=== PATIENT | female | born 1965 | race Caucasian/White ===

== ENCOUNTER 2016-11-15 18:31 | Emergency (ER) | payer SELFPAY ==
[2016-11-15 19:27] VITALS: BP 103/69; PULSE 60; RESP 20; TEMP 97.8; O2SAT 99
--- NOTE | 2016-11-15 20:19 | C.PDOC ---
History Of Present Illness 51 year old female presents to the ED for evaluation of a bite to her left index finger which she sustained from the family kitten. Patient states the family just received the kitten from the detention. Patient's daughter states the kitten is too young for rabies vaccination therefore has not received it yet. Patient denies fever, change in sensation or active bleeding from the site. Time Seen by Provider: 11/15/16 19:42 Chief Complaint (Nursing): Abnormal Skin Integrity History Per: Patient, Family (daughter) History/Exam Limitations: no limitations Onset/Duration Of Symptoms: Hrs Current Symptoms Are (Timing): Still Present Location Of Injury: Left: Hand (second finger ) Quality Of Symptoms: denies: Draining Additional History Per: Patient Past Medical History Reviewed: Historical Data, Nursing Documentation, Vital Signs Vital Signs: Last Vital Signs Temp 97.8 F 11/15/16 19:23 Pulse 60 11/15/16 19:23 Resp 20 11/15/16 19:23 BP 103/69 11/15/16 19:23 Pulse Ox 99 11/15/16 22:42 - Medical History PMH: No Chronic Diseases Surgical History: No Surg Hx Family History: States: Unknown Family Hx - Social History Hx Alcohol Use: No Hx Substance Use: No Review Of Systems Constitutional: Negative for: Fever, Chills Skin: Positive for: Other (kitten bite to left second finger ) Physical Exam - Physical Exam Appears: Non-toxic, No Acute Distress Skin: Normal Color, Warm, Dry, Other (puncture wound to left second finger. no discharge or erythema ) Head: Atraumatic, Normacephalic Eye(s): bilateral: Normal Inspection, EOMI Nose: Normal Oral Mucosa: Moist Chest: Symmetrical Respiratory: No Accessory Muscle Use Extremity: Normal ROM, No Tenderness, Capillary Refill (less than 2 seconds ), No Deformity, No Swelling Pulses: Left Radial: Normal, Right Radial: Normal Neurological/Psych: Normal Speech, Normal Cognition, Normal Motor, Normal Sensation ED Course And Treatment O2 Sat by Pulse Oximetry: 99 (on RA) Pulse Ox Interpretation: Normal Progress Note: Tetanus immunization IM was administered. Bacitracin TOP applied to affected area. Case discussed with Dr Hobbs , agreed upon no rabies vaccine needed, animal can be quarantined. Pt left prior to treatment and dispostion. Disposition - Disposition Disposition: HOME/ ROUTINE Disposition Time: 20:23 Condition: STABLE Additional Instructions: You are not being treated for rabies because the cat is in your possession and can be quarantined. Follow up with animal control and your PMD . Watch for signs of infection including redness, swelling and discharge. Prescriptions: Doxycycline Hyclate [Doryx] 100 mg PO BID #14 cap Instructions: Animal Bite (ED) Forms: [employer] (Kyrgyz) - Clinical Impression Clinical Impression: Cat bite - PA / CHIEF COMMUNICATIONS OFFICER / Resident Statement MD/DO has reviewed & agrees with the documentation as recorded. - Scribe Statement The provider has reviewed the documentation as recorded by the Scribe (Shyann Washington) All medical record entries made by the Scribe were at my direction and personally dictated by me. I have reviewed the chart and agree that the record accurately reflects my personal performance of the history, physical exam, medical decision making, and the department course for this patient. I have also personally directed, reviewed, and agree with the discharge instructions and disposition.
[2016-11-15] MEDS ORDERED: Bacitracin 500 Units/gm Oint Foilpak UD TOP ONE (20:21)
== END 2016-11-15 20:29 | disposition home or self-care (01) ==
LOC: C.ER 18:31
DX: S61.231A Puncture wound without foreign body of left index finger without damage to nail, initial encounter (principal); W55.01XA Bitten by cat, initial encounter